=== PATIENT | female | born 1980 | race Caucasian/White ===

== ENCOUNTER 2018-05-18 00:15 | Outpatient (CLI) | payer BC, SELFPAY ==
[2018-05-19 17:29] LABS: Estradiol 68 pg/ml
[2018-05-21 16:23] LABS: Antimullerian Hormone 1.3 ng/mL (0.9-9.5)
== END 2018-05-18 00:16 ==
PROVIDERS: Visit Provider Obstetrics & Gynecology Reproductive Endocrinology
DX: E28.9 Ovarian dysfunction, unspecified (principal)
CPT/HCPCS: 36415; 82670; 83001; 83520